=== PATIENT | male | born 1995 | race American Indian/Alaskan Native ===

== ENCOUNTER 2017-07-06 15:31 | Emergency (ER) | payer SELFPAY ==
[2017-07-06 15:38] VITALS: BP 137/74
[2017-07-06] MEDS ORDERED: diphenhydrAMINE 25 MG Tab PO ONE (15:59)
--- NOTE | 2017-07-06 16:01 | EDM.PDOC ---
ED HPI GENERAL MEDICAL PROBLEM - General Chief Complaint: Allergic Reaction Stated Complaint: AMBULANCE, ALLERGIC REACTION Time Seen by Provider: 07/06/17 15:59 Source of Information: Reports: Patient History Limitations: Reports: No Limitations - History of Present Illness INITIAL COMMENTS - FREE TEXT/NARRATIVE: Patient was brought to the ER by [facility] after being stung by a bee. He states when he was a child he was stung by many bees and had an anaphylactic reaction. When he received the bee sting he became very anxious. He denies difficulty breathing, sob, swelling, chest pain, fever or chills. He states there was mild redness and a welt immediately after the sting occurred, but has not spread or worsened. He has not iced the area or taken any medications. Onset: Today, Sudden Location: Reports: Upper Extremity, Left Quality: Reports: Other (slight stinging) Severity: Mild Improves with: Reports: None Worsens with: Reports: None Associated Symptoms: Reports: No Other Symptoms Left Arm Pain Score (Numeric/FACES): 4 - Related Data Allergies Allergy/AdvReac Type Severity Reaction Status Date / Time venom-honey bee Allergy Hives Verified 07/06/17 15:37 [bee venom (honey bee)] Home Meds: Home Meds . [No Known Home Meds] 06/11/15 [History] Past Medical History - Past Health History Medical/Surgical History: Denies Medical/Surgical History HEENT History: Reports: None Cardiovascular History: Reports: None Respiratory History: Reports: None Gastrointestinal History: Reports: None Genitourinary History: Reports: None Musculoskeletal History: Reports: None Neurological History: Reports: None Psychiatric History: Reports: None Endocrine/Metabolic History: Reports: None Hematologic History: Reports: None Immunologic History: Reports: None Oncologic (Cancer) History: Reports: None Dermatologic History: Reports: None - Infectious Disease History Infectious Disease History: Reports: Chicken Pox Social & Family History - Tobacco Use Smoking Status *Q: Current Every Day Smoker Years of Tobacco use: 1 Packs/Tins Daily: 0.5 Used Tobacco, but Quit: No Second Hand Smoke Exposure: No - Caffeine Use Caffeine Use: Reports: Coffee, Energy Drinks, Soda - Recreational Drug Use Recreational Drug Use: No ED ROS ALLERGIC REACTION - Review of Systems Review Of Systems: ROS reveals no pertinent complaints other than HPI. ED EXAM GENERAL NO PERIP PULSE - Physical Exam Exam: See Below Exam Limited By: No Limitations General Appearance: Alert Nose: Normal Inspection Throat/Mouth: Normal Inspection, Normal Lips, Normal Teeth, Normal Gums, Normal Oropharynx, Normal Voice, No Airway Compromise Head: Atraumatic, Normocephalic Neck: Normal Inspection, Supple, Non-Tender, Full Range of Motion Respiratory/Chest: No Respiratory Distress, Lungs Clear, Normal Breath Sounds, No Accessory Muscle Use, Chest Non-Tender Cardiovascular: Normal Peripheral Pulses, Regular Rate, Rhythm, No Edema, No Gallop, No JVD, No Murmur, No Rub GI/Abdominal: Normal Bowel Sounds, Soft, Non-Tender, No Organomegaly, No Distention, No Abnormal Bruit, No Mass (Male) Exam: Deferred Rectal (Males) Exam: Deferred Back Exam: Normal Inspection, Full Range of Motion, NT Extremities: Normal Inspection, Normal Range of Motion, Non-Tender, No Pedal Edema, Normal Capillary Refill, Other (1cm welt to the left forearm) Neurological: Alert, Oriented, CN II-XII Intact, Normal Cognition, Normal Gait, Normal Reflexes, No Motor/Sensory Deficits Psychiatric: Normal Affect, Normal Mood Skin Exam: Warm, Dry, Intact, Normal Color, Other (1cm welt to the left forearm) Lymphatic: No Adenopathy Course - Vital Signs Last Recorded V/S: Last Vital Signs Temp 98.9 F 07/06/17 15:31 Pulse 80 07/06/17 15:31 Resp 16 07/06/17 15:31 BP 137/74 07/06/17 15:31 Pulse Ox 97 07/06/17 15:31 - Orders/Labs/Meds Meds: Medications Discontinued Medications Generic Name Dose Route Start Last Admin Trade Name Matilde PRN Reason Stop Dose Admin Diphenhydramine HCl 25 mg 07/06/17 15:59 07/06/17 16:19 Benadryl PO 07/06/17 16:00 25 mg ONETIME ONE Administration Departure - Departure Time of Disposition: 16:03 Disposition: Home, Self-Care 01 Condition: Good Clinical Impression: Insect bite or sting - Discharge Information Instructions: Insect Bite Forms: ED Department Discharge Additional Instructions: Benadryl 25mg orally every 6 hours as needed for swelling. Return to the ER with any difficulty breathing.
== END 2017-07-06 16:25 | disposition home or self-care (01) ==
LOC: DL.ED 15:31
DX: T63.441A Toxic effect of venom of bees, accidental (unintentional), initial encounter (principal); F17.210 Nicotine dependence, cigarettes, uncomplicated; Z91.030 Bee allergy status
CPT/HCPCS: 99284; A9270

== ENCOUNTER 2018-05-02 09:28 | Emergency (ER) | payer OTHER ==
[2018-05-02 10:14] VITALS: BP 124/71
--- NOTE | 2018-05-02 10:23 | EDM.PDOC ---
ED HPI GENERAL MEDICAL PROBLEM - General Chief Complaint: Skin Complaint Stated Complaint: SWOLLEN, HARD LUMP IN RT ARMPIT Time Seen by Provider: 05/02/18 10:23 Source of Information: Reports: Patient, RN, RN Notes Reviewed History Limitations: Reports: No Limitations - History of Present Illness INITIAL COMMENTS - FREE TEXT/NARRATIVE: Pt c/o abscess to Rt axilla. Pt first noticed a pimple like bump in the axilla several days ago, and over the last 2 days it increased and became very painful. Denies fever or chills. Hx of skin abscesses, but pt isn't sure if he has had MRSA or not. Onset: Gradual Duration: Constant, Getting Worse Location: Reports: Other (Rt axilla) Quality: Reports: Ache Severity: Severe Improves with: Reports: None Worsens with: Reports: None Associated Symptoms: Reports: No Other Symptoms - Related Data Allergies Allergy/AdvReac Type Severity Reaction Status Date / Time codeine Allergy Hives Verified 05/02/18 10:00 venom-honey bee Allergy Hives Verified 05/02/18 10:04 [bee venom (honey bee)] Home Meds: Home Meds . [No Known Home Meds] 06/11/15 [History] Past Medical History - Past Health History Medical/Surgical History: Denies Medical/Surgical History HEENT History: Reports: None Cardiovascular History: Reports: None Respiratory History: Reports: None Gastrointestinal History: Reports: None Genitourinary History: Reports: None Musculoskeletal History: Reports: None Neurological History: Reports: None Psychiatric History: Reports: None Endocrine/Metabolic History: Reports: None Hematologic History: Reports: None Immunologic History: Reports: None Oncologic (Cancer) History: Reports: None Dermatologic History: Reports: None - Infectious Disease History Infectious Disease History: Reports: Chicken Pox Social & Family History - Family History Family Medical History: Noncontributory - Caffeine Use Caffeine Use: Reports: Coffee, Energy Drinks, Soda - Living Situation & Occupation Living situation: Reports: , with Family Occupation: Employed ED ROS GENERAL - Review of Systems Review Of Systems: ROS reveals no pertinent complaints other than HPI. ED EXAM, SKIN/RASH Exam: See Below Exam Limited By: No Limitations General Appearance: Alert, WD/WN, No Apparent Distress Head: Atraumatic, Normocephalic Neck: Normal Inspection Respiratory/Chest: No Respiratory Distress Cardiovascular: Regular Rate, Rhythm Extremities: Arm Pain (Rt axilla with 3cm fluctuant, erythematous, tender soft tissue abscess without drainage.) Neurological: Alert, Oriented, No Motor/Sensory Deficits Psychiatric: Normal Mood ED SKIN PROCEDURES - I&D Site: Rt axilla Skin Prep: Chlorhexidine (Hibiciens), Saline Local Anesthesia: Lidocaine: 1% Plain Local Anesthetic Volume: Other (12cc) Area Incised With: 11 Blade Drainage: Purulent, Moderate Amount Probed to Break Up Loculations: Yes Packed With: 1/4 in. Iodoform Sterile Dressinx4(s) Complications: No Course - Vital Signs Last Recorded V/S: Last Vital Signs Temp 37.1 C 05/02/18 09:57 Pulse 59 L 05/02/18 09:57 Resp 16 05/02/18 09:57 BP 124/71 05/02/18 09:57 Pulse Ox 98 05/02/18 09:57 - Orders/Labs/Meds Meds: Medications Discontinued Medications Generic Name Dose Route Start Last Admin Trade Name Matilde PRN Reason Stop Dose Admin Hydrocodone Bitart/Acetaminophen 1 tab 05/02/18 10:25 05/02/18 10:35 [place] 325-10 Mg PO 05/02/18 10:26 1 tab ONETIME ONE Administration Bacitracin 1 dose 05/02/18 10:25 05/02/18 10:37 Bacitracin Oint 1 Gm TOP 05/02/18 10:26 1 dose ONETIME ONE Administration Clindamycin HCl 300 mg 05/02/18 10:25 05/02/18 10:36 Cleocin PO 05/02/18 10:26 300 mg ONETIME ONE Administration Lidocaine HCl 30 ml 05/02/18 10:24 05/02/18 10:37 Xylocaine-Mpf 1% INJECT 05/02/18 10:25 30 ml ONETIME ONE Administration Departure - Departure Time of Disposition: 10:56 Disposition: Home, Self-Care 01 Condition: Good Clinical Impression: Abscess of right axilla - Discharge Information Instructions: Incision and Drainage, Care After, Skin Abscess, Urmx-of-Zanw Forms: ED Department Discharge Additional Instructions: Rx: Clindamycin 300mg Rx: Bactroban Ointment 2% If packing falls out of the incision, you can just pull it out and throw it away. Follow up in clinic Saturday, May 05 for recheck.
[2018-05-02] MEDS ORDERED: Lidocaine 1% 30 ML SDV INJECT ONE (10:24)
[2018-05-02] MEDS ORDERED: Clindamycin HCl 150 MG Cap PO ONE (10:25)
[2018-05-02] MEDS ORDERED: Bacitracin Oint 1 GM U/D Packet TOP ONE (10:25)
[2018-05-02] MEDS ORDERED: Acetaminophen/HYDROcodone 325-10 MG Tab PO ONE (10:25)
== END 2018-05-02 11:15 | disposition home or self-care (01) ==
LOC: DL.ED 09:28
DX: L02.411 Cutaneous abscess of right axilla (principal); Z88.5 Allergy status to narcotic agent; Z91.030 Bee allergy status
CPT/HCPCS: 10060; 87070; 99283; A9270; 87077; 87186

== ENCOUNTER 2018-05-04 17:47 | Emergency (ER) | payer OTHER | END 2018-05-04 17:55 | disposition left against medical advice (07) | LOC: DL.ED 17:47 | DX: Z53.21 Procedure and treatment not carried out due to patient leaving prior to being seen by health care provider (principal) ==

== ENCOUNTER 2020-03-27 15:42 | Emergency (ER) | payer MEDICAID, OTHER ==
[2020-03-27 15:58] VITALS: BP 129/69; PULSE 71
--- NOTE | 2020-03-27 16:12 | EDM.PDOC ---
ED HPI GENERAL MEDICAL PROBLEM - General Chief Complaint: General Stated Complaint: chest pain, lower back and stomach pain Time Seen by Provider: 03/27/20 16:12 Source of Information: Reports: Patient, Old Records, RN, RN Notes Reviewed History Limitations: Reports: No Limitations - History of Present Illness INITIAL COMMENTS - FREE TEXT/NARRATIVE: Pt presents to ER frpm home by POV with c/o constipation and abdominal pain x1 week, and chest pain with upper back pain and lower back pain for 3 to 4 months. He has had appendectomy in the past. He states that he has had a BM for one week. He is on chronic Suboxone therapy due to opiate addiction. He admits to a brief one day relapse of Oxycodone use 2 days ago. He states he went to [facility] for the chronic chest and back pains, and they told him that it was musculoskeletal pain, but he feels that is not it correct. He has been scared to seek care because of Covid. Denies fever, chills, N/V, urinary Sx's, or rash. Onset: Gradual Duration: Constant, Getting Worse Location: Reports: Chest, Abdomen, Back Quality: Reports: Ache, Pressure, Other (Cramping) Severity: Severe Improves with: Reports: None Worsens with: Reports: None Associated Symptoms: Reports: No Other Symptoms Treatments CUSTOMER ENGINEER: Reports: Other Medication(s) (Magnesium Citrate) Abdomen Pain Score (Numeric/FACES): 6 - Related Data Allergies Allergy/AdvReac Type Severity Reaction Status Date / Time codeine Allergy Hives Verified 03/27/20 15:54 venom-honey bee Allergy Hives Verified 03/27/20 15:54 [bee venom (honey bee)] Home Meds: Home Meds Buprenorphine HCl/Naloxone HCl [Suboxone 4 mg-1 mg Sl Film] 1 film PO BID [History] Past Medical History - Past Health History Medical/Surgical History: Denies Medical/Surgical History HEENT History: Reports: None Cardiovascular History: Reports: None Respiratory History: Reports: None Gastrointestinal History: Reports: None Genitourinary History: Reports: None Musculoskeletal History: Reports: None Neurological History: Reports: None Psychiatric History: Reports: Addiction Endocrine/Metabolic History: Reports: None Hematologic History: Reports: None Immunologic History: Reports: None Oncologic (Cancer) History: Reports: None Dermatologic History: Reports: None - Infectious Disease History Infectious Disease History: Reports: Chicken Pox Social & Family History - Family History Family Medical History: Noncontributory - Tobacco Use Smoking Status *Q: Current Every Day Smoker Years of Tobacco use: 4 Packs/Tins Daily: 0.3 - Caffeine Use Caffeine Use: Reports: Energy Drinks - Alcohol Use Alcohol Use History: No - Recreational Drug Use Recreational Drug Use: Yes Drug Use in Last 12 Months: Yes Recreational Drug Type: Reports: Marijuana/Hashish, Oxycodone Recreational Drug Use Frequency: Weekly (Marijuana) - Living Situation & Occupation Living situation: Reports: , with Family Occupation: Employed ED ROS GENERAL - Review of Systems Review Of Systems: Comprehensive ROS is negative, except as noted in HPI. ED EXAM, GENERAL - Physical Exam Exam: See Below Exam Limited By: No Limitations General Appearance: Alert, WD/WN, No Apparent Distress, Anxious Eye Exam: Bilateral Eye: Normal Inspection Nose: Normal Inspection Throat/Mouth: Normal Inspection, Normal Voice, No Airway Compromise Head: Atraumatic, Normocephalic Neck: Normal Inspection, Supple, Non-Tender, Full Range of Motion Respiratory/Chest: No Respiratory Distress, Lungs Clear, Normal Breath Sounds, No Accessory Muscle Use, Chest Non-Tender Cardiovascular: Normal Peripheral Pulses, Regular Rate, Rhythm, No Edema, No Gallop, No JVD, No Murmur, No Rub GI/Abdominal: Normal Bowel Sounds, Soft, No Organomegaly, No Distention, No Abnormal Bruit, No Mass, Tender (RLQ, suprapubic, LUQ, LLQ), Other (Old scar from remote appendectomy). No: Guarding, Rigid, Rebound (Male) Exam: Deferred Rectal (Males) Exam: Deferred Back Exam: Normal Inspection, Full Range of Motion. No: CVA Tenderness (L), CVA Tenderness (R) Extremities: Normal Inspection Neurological: Alert, Oriented, No Motor/Sensory Deficits Psychiatric: Anxious Skin Exam: Warm, Dry, Intact, Normal Color, No Rash Course - Vital Signs Last Recorded V/S: Last Vital Signs Temp 98.6 F 03/27/20 15:54 Pulse 71 03/27/20 15:54 Resp 16 03/27/20 15:54 BP 129/69 03/27/20 15:54 Pulse Ox 99 03/27/20 15:54 - Orders/Labs/Meds Orders: Active Orders 24 hr Category Date Time Status EKG 12 Lead [EKG Documentation Completion] [RC] STAT Care 03/27/20 16:24 Active Peripheral IV Care [RC] . DIRECTED Care 03/27/20 16:21 Active CHLAMYDIA AND GONORRHEA BY [facility] Routine Lab 03/27/20 16:40 Received Sodium Chloride 0.9% [Saline Flush] Med 03/27/20 16:21 Active 10 ml FLUSH ASDIRECTED PRN Peripheral IV Insertion Adult [OM.PC] Stat Oth 03/27/20 16:20 Ordered Medication Orders Sodium Chloride (Saline Flush) 10 ml FLUSH ASDIRECTED PRN PRN Reason: Keep Vein Open Last Admin: 03/27/20 16:51 Dose: 10 ml Labs: Laboratory Tests 03/27/20 03/27/20 03/27/20 Range/Units 16:36 16:36 16:36 WBC 8.6 (5.0-10.0) 10^3/uL RBC 4.42 L (4.6-6.2) 10^6/uL Hgb 14.8 (14.0-18.0) g/dL Hct 42.0 (40.0-54.0) % MCV 95.0 (80-100) fL MCH 33.5 (27.0-34.0) pg MCHC 35.2 H (33.0-35.0) g/dL Plt Count 191 (150-450) 10^3/uL Neut % (Auto) 71.0 (42.2-75.2) % Lymph % (Auto) 15.5 L (20.5-50.1) % [place] % (Auto) 10.5 H (2-8) % Eos % (Auto) 2.6 (1.0-3.0) % Baso % (Auto) 0.4 (0.0-1.0) % D-Dimer, Quantitative < 100 (0-400) ng/mL Sodium 142 (136-145) mmol/L Potassium 4.1 (3.5-5.1) mmol/L Chloride 103 (98-107) mmol/L Carbon Dioxide 33 H (21-32) mmol/L Anion Gap 10.1 (7-13) mEq/L BUN 17 (7-18) mg/dL Creatinine 0.94 (0.70-1.30) mg/dL Est Cr Clr Drug Dosing 115.21 mL/min Estimated GFR (MDRD) > 60 BUN/Creatinine Ratio 18.1 (No establ ref range) Glucose 96 (74-99) mg/dL Calcium 8.6 (8.5-10.1) mg/dL Total Bilirubin 0.8 (0.2-1.0) mg/dL AST 22 (15-37) U/L ALT 44 (16-63) U/L Alkaline Phosphatase 63 (46-116) U/L C-Reactive Protein 4.8 H (0.0-0.9) mg/dL Total Protein 7.3 (6.4-8.2) g/dL Albumin 4.2 (3.4-5.0) g/dL Globulin 3.1 Albumin/Globulin Ratio 1.4 Amylase 41 (25-115) U/L Lipase 55 L (73-393) U/L Urine Color (YELLOW) Urine Appearance (CLEAR) Urine pH (5.0-9.0) Ur Specific [place] (1.005-1.030) Urine Protein (NEGATIVE) Urine Glucose (UA) (NEGATIVE) Urine Ketones (NEGATIVE) Urine Occult Blood (NEGATIVE) Urine Nitrite (NEGATIVE) Urine Bilirubin (NEGATIVE) Urine Urobilinogen (0.2-1.0) mg/dL Ur Leukocyte Esterase (NEGATIVE) Urine Opiates Screen (NEGATIVE) Ur Oxycodone Screen (NEGATIVE) Urine Methadone Screen (NEGATIVE) Ur Barbiturates Screen (NEGATIVE) U Tricyclic Antidepress (NEGATIVE) Ur Phencyclidine Scrn (NEGATIVE) Ur Amphetamine Screen (NEGATIVE) U Methamphetamines Scrn (NEGATIVE) Urine MDMA Screen (NEGATIVE) U Benzodiazepines Scrn (NEGATIVE) Urine Cocaine Screen (NEGATIVE) U Marijuana (THC) Screen (NEGATIVE) 03/27/20 03/27/20 Range/Units 16:40 16:43 WBC (5.0-10.0) 10^3/uL RBC (4.6-6.2) 10^6/uL Hgb (14.0-18.0) g/dL Hct (40.0-54.0) % MCV (80-100) fL MCH (27.0-34.0) pg MCHC (33.0-35.0) g/dL Plt Count (150-450) 10^3/uL Neut % (Auto) (42.2-75.2) % Lymph % (Auto) (20.5-50.1) % [place] % (Auto) (2-8) % Eos % (Auto) (1.0-3.0) % Baso % (Auto) (0.0-1.0) % D-Dimer, Quantitative (0-400) ng/mL Sodium (136-145) mmol/L Potassium (3.5-5.1) mmol/L Chloride (98-107) mmol/L Carbon Dioxide (21-32) mmol/L Anion Gap (7-13) mEq/L BUN (7-18) mg/dL Creatinine (0.70-1.30) mg/dL Est Cr Clr Drug Dosing mL/min Estimated GFR (MDRD) BUN/Creatinine Ratio (No establ ref range) Glucose (74-99) mg/dL Calcium (8.5-10.1) mg/dL Total Bilirubin (0.2-1.0) mg/dL AST (15-37) U/L ALT (16-63) U/L Alkaline Phosphatase (46-116) U/L C-Reactive Protein (0.0-0.9) mg/dL Total Protein (6.4-8.2) g/dL Albumin (3.4-5.0) g/dL Globulin Albumin/Globulin Ratio Amylase (25-115) U/L Lipase (73-393) U/L Urine Color Yellow (YELLOW) Urine Appearance Clear (CLEAR) Urine pH 7.5 (5.0-9.0) Ur Specific [place] 1.025 (1.005-1.030) Urine Protein Negative (NEGATIVE) Urine Glucose (UA) Negative (NEGATIVE) Urine Ketones Negative (NEGATIVE) Urine Occult Blood Negative (NEGATIVE) Urine Nitrite Negative (NEGATIVE) Urine Bilirubin Negative (NEGATIVE) Urine Urobilinogen 1.0 (0.2-1.0) mg/dL Ur Leukocyte Esterase Negative (NEGATIVE) Urine Opiates Screen Negative (NEGATIVE) Ur Oxycodone Screen Positive H (NEGATIVE) Urine Methadone Screen Negative (NEGATIVE) Ur Barbiturates Screen Negative (NEGATIVE) U Tricyclic Antidepress Negative (NEGATIVE) Ur Phencyclidine Scrn Negative (NEGATIVE) Ur Amphetamine Screen Negative (NEGATIVE) U Methamphetamines Scrn Negative (NEGATIVE) Urine MDMA Screen Negative (NEGATIVE) U Benzodiazepines Scrn Negative (NEGATIVE) Urine Cocaine Screen Negative (NEGATIVE) U Marijuana (THC) Screen Positive H (NEGATIVE) Meds: Medications Generic Name Dose Route Start Last Admin Trade Name Freq PRN Reason Stop Dose Admin Sodium Chloride 10 ml 03/27/20 16:21 03/27/20 16:51 Saline Flush FLUSH 10 ml ASDIRECTED PRN Administration Keep Vein Open Discontinued Medications Generic Name Dose Route Start Last Admin Trade Name Freq PRN Reason Stop Dose Admin Bisacodyl 10 mg 03/27/20 17:21 Dulcolax RECTAL 03/27/20 17:22 ONETIME ONE Sodium Chloride 1,000 mls @ 999 mls/hr 03/27/20 16:21 03/27/20 16:51 Normal Saline IV 03/27/20 17:21 999 mls/hr .BOLUS ONE Administration Ketorolac Tromethamine 30 mg 03/27/20 16:21 03/27/20 16:50 Toradol IVPUSH 03/27/20 16:22 30 mg ONETIME ONE Administration Lactulose 20 gm 03/27/20 16:57 03/27/20 17:12 Cephulac PO 03/27/20 16:58 20 gm ONETIME ONE Administration Methylnaltrexone [place] 12 mg 03/27/20 16:56 03/27/20 17:13 Relistor SUBCUT 03/27/20 16:57 12 mg ONETIME ONE Administration - Radiology Interpretation Free Text/Narrative:: [facility] Final Radiology Report Call: [phone] assistance Online chat: [email or web address] Name: GABRIELLE PRESLEY Age: 24Years M Date: 03/27/2020 SSN: -- : [id number] Study: CR CHEST 2V Requesting Physician: MARCOS MOSES Images: 2 Addl Studies: Provided Clinical History: cough, chest and upper back pain Contrast: Contrast Medium: Contrast Amount: Contrast Method: CONFIDENTIALITY STATEMENT This report is intended only for use by the referring physician, and only in accordance with law. If you received this in error, call [phone]. Page 1 of 1 PROCEDURE INFORMATION: Exam: XR Chest, 2 Views Exam date and time: 03/27/2020 4:26 PM Age: 24 years old Clinical indication: Cough; Additional info: Cough, chest and upper back pain TECHNIQUE: Imaging protocol: XR of the chest Views: 2 views. COMPARISON: No relevant prior studies available. FINDINGS: Lungs: Unremarkable. No consolidation. Pleural space: Unremarkable. No pleural effusion. No pneumothorax. Heart/Mediastinum: Unremarkable. No cardiomegaly. Bones/joints: Unremarkable. IMPRESSION: No acute findings. Thank you for allowing us to participate in the care of your patient. Dictated and Authenticated by: Lam Oviedo MD 03/27/2020 4:39 PM Central Time ( & [place]) [facility] Final Radiology Report Call: [phone] assistance Online chat: [email or web address] Name: GABRIELLE PRESLEY Age: 24Years M Date: 03/27/2020 SSN: -- : [id number] Study: CR ABDOMEN 2V AP FLAT UPRIGHT Requesting Physician: MARCOS MOSES Images: 2 Addl Studies: Provided Clinical History: lower abdomen pain Contrast: Contrast Medium: Contrast Amount: Contrast Method: CONFIDENTIALITY STATEMENT This report is intended only for use by the referring physician, and only in accordance with law. If you received this in error, call [phone]. Page 1 of 1 PROCEDURE INFORMATION: Exam: XR Abdomen, 2 Views Exam date and time: 03/27/2020 4:29 PM Age: 24 years old Clinical indication: Other: Low abd pain, HX appendectomy, possible constipation , on chronic suboxonr tx; Additional info: Lower abdomen pain TECHNIQUE: Imaging protocol: XR of the abdomen. Views: 2 Views. COMPARISON: No relevant prior studies available. FINDINGS: Lungs: The visualized portions of the lung bases demonstrate no acute disease. Gastrointestinal tract: There is no evidence of intestinal perforation or obstruction. There is excessive colonic stool content. Intraperitoneal space: Punctate calcifications in the pelvis are nonspecific. Bones/joints: Osseous anatomic alignment is well preserved. No acutely displaced fracture or dislocation. Joint spaces are well preserved. IMPRESSION: 1. No acute findings. 2. Severe constipation. Thank you for allowing us to participate in the care of your patient. Dictated and Authenticated by: Lam Oviedo MD 03/27/2020 4:50 PM Central Time ([place] & [place]) Departure - Departure Time of Disposition: 17:17 Disposition: Home, Self-Care 01 Condition: Good Clinical Impression: Constipation due to opioid therapy, Musculoskeletal pain, Allodynia - Discharge Information *PRESCRIPTION DRUG MONITORING PROGRAM REVIEWED*: Not Applicable *COPY OF PRESCRIPTION DRUG MONITORING REPORT IN PATIENT FÉLIX: Not Applicable Instructions: Constipation, Adult, Musculoskeletal Pain Forms: ED Department Discharge Additional Instructions: Rx: Colace 100mg Drink plenty of water. Eat prunes. Eat fresh fruits and vegetables. Do not eat rice, potato, cheese, bananas, bread, or pasta/noodles. Do not take Oxycodone or any other opiate. Take Suboxone exactly as prescribed. Follow up in clinic in 2 to 3 days if not improved. Sepsis Event Note - Evaluation Sepsis Screening Result: No Definite Risk - Focused Exam Vital Signs: Vital Signs Temp Pulse Resp BP Pulse Ox 03/27/20 15:54 98.6 F 71 16 129/69 99 Date Exam was Performed: 03/27/20 Time Exam was Performed: 17:22 - My Orders Last 24 Hours: My Active Orders 03/27/20 16:20 Peripheral IV Insertion Adult [OM.PC] Stat 03/27/20 16:21 Peripheral IV Care [RC] . DIRECTED Sodium Chloride 0.9% [Saline Flush] 10 ml FLUSH ASDIRECTED PRN 03/27/20 16:24 EKG 12 Lead [EKG Documentation Completion] [RC] STAT 03/27/20 16:40 CHLAMYDIA AND GONORRHEA BY TMA Routine - Assessment/Plan Last 24 Hours: My Active Orders 03/27/20 16:20 Peripheral IV Insertion Adult [OM.PC] Stat 03/27/20 16:21 Peripheral IV Care [RC] . DIRECTED Sodium Chloride 0.9% [Saline Flush] 10 ml FLUSH ASDIRECTED PRN 03/27/20 16:24 EKG 12 Lead [EKG Documentation Completion] [RC] STAT 03/27/20 16:40 CHLAMYDIA AND GONORRHEA BY TMA Routine
[2020-03-27] MEDS ORDERED: Ketorolac 30 MG/ML SDV IVPUSH ONE (16:21)
[2020-03-27] MEDS ORDERED: Sodium Chloride 0.9% 10 ML Syringe FLUSH PRN (16:21)
[2020-03-27] MEDS ORDERED: Sodium Chloride 0.9% 1,000 ML IV ONE (16:21)
--- NOTE | 2020-03-27 16:39 | CR ---
PROCEDURE INFORMATION: Exam: XR Chest, 2 Views Exam date and time: 03/27/2020 4:26 PM Age: 24 years old Clinical indication: Cough; Additional info: Cough, chest and upper back pain TECHNIQUE: Imaging protocol: XR of the chest Views: 2 views. COMPARISON: No relevant prior studies available. FINDINGS: Lungs: Unremarkable. No consolidation. Pleural space: Unremarkable. No pleural effusion. No pneumothorax. Heart/Mediastinum: Unremarkable. No cardiomegaly. Bones/joints: Unremarkable. IMPRESSION: No acute findings.
--- NOTE | 2020-03-27 16:51 | CR ---
PROCEDURE INFORMATION: Exam: XR Abdomen, 2 Views Exam date and time: 03/27/2020 4:29 PM Age: 24 years old Clinical indication: Other: Low abd pain, HX appendectomy, possible constipation, on chronic suboxonr tx; Additional info: Lower abdomen pain TECHNIQUE: Imaging protocol: XR of the abdomen. Views: 2 Views. COMPARISON: No relevant prior studies available. FINDINGS: Lungs: The visualized portions of the lung bases demonstrate no acute disease. Gastrointestinal tract: There is no evidence of intestinal perforation or obstruction. There is excessive colonic stool content. Intraperitoneal space: Punctate calcifications in the pelvis are nonspecific. Bones/joints: Osseous anatomic alignment is well preserved. No acutely displaced fracture or dislocation. Joint spaces are well preserved. IMPRESSION: 1. No acute findings. 2. Severe constipation.
[2020-03-27] MEDS ORDERED: Methylnaltrexone 12 MG/0.6 ML SDV SUBCUT ONE (16:56)
[2020-03-27] MEDS ORDERED: Lactulose Soln 10 GM/15 ML 30 ML UD Cup PO ONE (16:57)
[2020-03-27 17:07] LABS: ANION GAP 10.1 mEq/L (7-13); CHLORIDE,CL 103 mmol/L (98-107); SODIUM,NA 142 mmol/L (136-145)
[2020-03-27] MEDS ORDERED: Bisacodyl 10 MG Supp RECTAL ONE (17:21)
[2020-03-29 11:46] LABS: C.TRACHOMATIS BY TMA Negative (Negative); N.GONORRHOEAE BY TMA Negative (Negative)
== END 2020-03-27 17:29 | disposition home or self-care (01) ==
LOC: DL.ED 15:42
DX: K59.03 Drug induced constipation (principal); T40.2X5A Adverse effect of other opioids, initial encounter; M54.5 Low back pain; M54.6 Pain in thoracic spine; R07.9 Chest pain, unspecified; Z88.5 Allergy status to narcotic agent; Z91.030 Bee allergy status; F17.210 Nicotine dependence, cigarettes, uncomplicated
CPT/HCPCS: 36415; 71046; 74019; 80053; 80305; 81003; 82150; 83690; 85025; 85379; 86140; 87491; 87591; 93005; 96372; 96374; 99285; A9270; J1885; J2212; J7030

== ENCOUNTER 2023-05-06 13:39 | Emergency (ER) | payer BC, OTHER ==
[2023-05-06] MEDS ORDERED: Diphtheria,Pertussis(Acell),Tetanus Vaccine 0.5 ML Syringe IM ONE (14:04)
[2023-05-06] MEDS ORDERED: Bacitracin Oint 1 GM U/D Packet TOP ONE (14:04)
[2023-05-06] MEDS ORDERED: Lidocaine 1% 5 ML VIAL INJECT ONE (14:04)
[2023-05-06 14:18] VITALS: BP 144/92; PULSE 80
== END 2023-05-06 15:02 | disposition home or self-care (01) ==
LOC: DL.ED 13:39
DX: S61.012A Laceration without foreign body of left thumb without damage to nail, initial encounter (principal); F17.210 Nicotine dependence, cigarettes, uncomplicated; Z23 Encounter for immunization; Z88.5 Allergy status to narcotic agent; Z91.030 Bee allergy status; Z79.899 Other long term (current) drug therapy; W26.8XXA Contact with other sharp object(s), not elsewhere classified, initial encounter
CPT/HCPCS: 12002; 73120; 90471; 90715; 99282; 99283; A9270; J3490

== ENCOUNTER 2025-10-06 14:40 | Emergency (ER) | payer BC ==
[2025-10-06] MEDS ORDERED: Sodium Chloride 0.9% 10 ML Syringe FLUSH PRN (14:50)
[2025-10-06 14:52] VITALS: PULSE 53
[2025-10-06 15:04] LABS: BASOPHILS PERCENT AUTO 0.4 % (0.0-1.0); EOSINOPHILS PERCENT AUTO 2.1 % (1.0-3.0); LYMPHOCYTES PERCENT AUTO 17.5 % (20.5-50.1); MONOCYTES PERCENT AUTO 5.2 % (2-8); NEUTROPHILS PERCENT AUTO 74.8 % (42.2-75.2); PLATELET COUNT,PLT 235 10^3/uL (150-450); RED BLOOD CELL COUNT 4.58 10^6/uL (4.6-6.2); WHITE BLOOD CELL COUNT,WBC 9.3 10^3/uL (5.0-10.0)
[2025-10-06 15:26] LABS: LACTIC ACID 1.1 mmol/L (0.4-2.0)
[2025-10-06 15:32] LABS: A/G RATIO 1.3; ALANINE AMINOTRANSFERASE,ALT 35 U/L (16-63); ASPARTATE AMNIOTRANSFERASE,AST 20 U/L (15-37); BILIRUBIN TOTAL 0.5 mg/dL (0.2-1.0); BLOOD UREA NITROGEN,BUN 13 mg/dL (7-18); CARBON DIOXIDE,CO2 30 mmol/L (21-32); CHLORIDE,CL 103 mmol/L (98-107); CREATININE 0.94 mg/dL (0.70-1.30); EST CRCL DRUG DOSING (CG) 110.16 mL/min; ESTIMATED GFR 111 mL/min (>=60); ETHANOL BLOOD MEDICAL < 3 mg/dL (0); GLUCOSE RANDOM 95 mg/dL (70-99); PHOSPHORUS 2.0 mg/dL (2.6-4.7); POTASSIUM,K 3.6 mmol/L (3.5-5.1); PROTEIN TOTAL,TP 7.9 g/dL (6.4-8.2); SODIUM,NA 142 mmol/L (136-145); T4 FREE 1.19 ng/dL (0.76-1.46); TSH ULTRASENSITIVE 1.02 uIU/mL (0.36-3.74)
[2025-10-06] MEDS: Phosphorus #1 250 MG Tab PO ONE (15:52)
[2025-10-06 16:04] VITALS: BP 126/72
== END 2025-10-06 15:59 | disposition home or self-care (01) ==
LOC: DL.ED 14:40
DX: E83.39 Other disorders of phosphorus metabolism (principal); Z88.5 Allergy status to narcotic agent; Z91.030 Bee allergy status; Z79.899 Other long term (current) drug therapy
CPT/HCPCS: 36415; 80053; 80307; 83605; 83735; 84100; 84439; 84443; 85025; 86140; 87428; 93010; 99284; A9270